=== PATIENT | female | born 1940 | race Caucasian/White ===

== ENCOUNTER 2016-09-27 17:50 | Inpatient (IN) | payer MEDICARE, OTHER ==
[~2016-09-27] VITALS: Ht 157.5 cm; Wt 60.9 kg
--- NOTE | ~2016-09-27 | CN ---
PATIENT NAME:JOVANY KEARNEY MEDICAL RECORD: [id number] : 36 LOCATION:D. D.2137 ADMIT DATE: 09/27/16 ACCOUNT: [id number] CONSULTING PHYSICIAN: CHRISTIANO HUNTER MD REFERRING PHYSICIAN: MITCHELL PALAFOX MD DATE OF CONSULTATION: 09/28/2016 CONSULT REQUESTING PHYSICIAN: Dr. Mitchell Palafox. REASON FOR CONSULTATION: Acute flare of bronchiectasis. HISTORY OF PRESENT ILLNESS: Ms. Kearney is a 76-year-old female. According to the patient she has bronchiectasis for the last 30 years. She had multiple bronchoscopies in [place]. She moved to [place] in 2014. She was hospitalized at [facility], over here as well as to [facility], she was hospitalized for a long time. Then, she was also hospitalized in [facility] in [place] and she has seen a food safety field specialist over there times 2. The last time she was admitted, she has hemoptysis that was related to Xarelto and the patient got better. Now for the last few days, the patient is coughing white yellow color sputum production. The patient has shortness of breath with mild exertion. Her SpO2 is dropping in mid 50s with mild exertion. She also hears herself wheezing. PAST MEDICAL HISTORY: 1. Bronchiectasis for the last 30 years. 2. History of histoplasmosis. 3. Chronic hypoxic respiratory failure. 4. COPD. 5. Iron deficiency anemia. 6. Hyperlipidemia. 7. Paroxysmal atrial fibrillation. 8. Pulmonary fibrosis. 9. Sputum culture positive for Achromobacter xylosoxidans that was sensitive to meropenem. PAST SURGICAL HISTORY: 1. Blepharoplasty. 2. Cataract surgery. 3. Laparoscopic cholecystectomy. ALLERGIES: SHE IS ALLERGIC TO SULFA. PRESENT MEDICATIONS: She is on Tikosyn. She is on Xarelto. Her all other medication list was reviewed. PERSONAL AND SOCIAL HISTORY: The patient is . She lives with her . She never smoked. She is a nondrinker. FAMILY HISTORY: Noncontributory. PHYSICAL EXAMINATION: GENERAL: Now, the patient is lying comfortably. She is not in acute distress. VITAL SIGNS: The blood pressure is 129/65, pulse is 71, respiration is 17, temperature 97.5, SPO2 is 96% on a 3 liter nasal cannula. HEENT: Conjunctivae pink, sclerae nonicteric. CONSULT REPORT [id number] JOVANY KEARNEY NECK: Supple. No JVD. CHEST: There is prolonged expiration with wheezing. There is also bibasilar crackles. HEART: Rhythm irregular. Normal sound. No murmur. ABDOMEN: Soft. Bowel sounds present. No hepatosplenomegaly. RECTAL: Deferred. EXTREMITIES: No cyanosis, no clubbing, no pedal edema. SKIN: Warm, normal turgor. CENTRAL NERVOUS SYSTEM: The patient is awake and alert. There are no obvious cranial nerve abnormality. The gait was not tested. IMAGING: Chest radiograph, there is hyperinflation. There is fibrotic changes. There is infiltrate in the right lower lobe. There are also right-sided pleural effusion. OTHER LABORATORY DATA: CBC: WBC 13.1, hemoglobin 13.5, hematocrit 44.5, the platelet count is 312. Chemistry: Sodium 141, potassium 3.9, BUN is 14, creatinine 0.9, glucose 107. ABG: The pH is 7.32, pCO2 is 65.3, pO2 of 75. IMPRESSION: 1. Acute exacerbation of bronchiectasis. 2. Acute exacerbation of chronic obstructive pulmonary disease. 3. Gsmcd-ee-esuznxp hypercapnic respiratory failure. 4. Pneumonia, most likely hospital-acquired pneumonia with recent hospitalization. 5. Right pleural effusion, possible parapneumonic. 6. Pulmonary fibrosis. 7. History of histoplasmosis. 8. History of pulmonary nodule in left upper lobe that was diagnosed in [place]. 9. Paroxysmal atrial fibrillation. RECOMMENDATION: 1. Continue the meropenem. 2. Brovana, budesonide nebulizer. 3. Albuterol/ipratropium nebulizer. 4. Methylprednisolone IV. 5. Check IgG, IgE, IgA, IgM. Check the alpha-1 antitrypsin level. 6. Check CT scan with high resolution cuts. 7. Check serum serology for the fungal infection. 8. Follow up labs in the morning. 9. We will get the medical records from [facility]. Dr. Palafox, once again thank you for involving in the care of Ms. Kearney. TRANSINT:[id number] Voice Confirmation ID: [id number] DOCUMENT ID: [id number] CONSULT REPORT [id number] JOVANY KEARNEY MUSHTAQ MD CC: MITCHELL PALAFOX MD [id number] DICTATION DATE: 09/28/16 1540 [employer]ICAN FO[employer] COOK: 09/29/16 0011 ADM IN [place] [id number] [place] [id number]
[2016-09-27 19:30] LABS: BASOPHILS 0.2 % (0-2); EOSINOPHILS 1.1 % (0-7); HEMATOCRIT 44.5 % (36.0-48.0); HEMOGLOBIN 13.5 g/dL (12-16); IMMATURE GRANULOCYTES 0.4 % (0-5); MCHC 30.3 g/dL (31.0-37.0); MCV 92.1 fL (80.0-100.0); MEAN PLATELET VOLUME 10.3 fL (7.4-10.4); MONOCYTES 10.8 % (2-11); NEUTROPHILS 62.5 % (40-80); PLATELET COUNT 312 10x3/uL (130-400); RBC 4.83 10x6/uL (4.00-5.40); RDW 13.8 % (11.5-14.5); WBC 13.1 10x3/uL (4.8-10.8)
[2016-09-27 19:46] LABS: ALBUMIN 3.5 g/dL (3.4-5.0); BILIRUBIN - TOTAL 0.33 mg/dL (0.2-1.3); CALCIUM 9.5 mg/dL (8.5-10.1); CARBON DIOXIDE 34.9 mmol/L (21.0-32.0); CREATININE - SERUM 0.9 mg/dL (0.6-1.3); POTASSIUM - SERUM 3.9 mmol/L (3.5-5.1); PROTEIN - SERUM 7.9 g/dL (6.4-8.2)
[2016-09-27] MEDS ORDERED: XARELTO10 MG PO (23:55)
[2016-09-27] MEDS ORDERED: PRAVASTATIN SOD10 MG PO (23:55)
[2016-09-27] MEDS ORDERED: CARTIA XT120 MG PO (23:55)
[2016-09-27] MEDS ORDERED: ANORO ELLIPTA1 EACH INH (23:56)
[2016-09-27] MEDS ORDERED: POTASSIUM40 MEQ/15 PO (23:56)
[2016-09-27] MEDS ORDERED: TORSEMIDE20 MG PO (23:59)
[2016-09-28 00:17] VITALS: BP 154/73; BMI 22.0
[2016-09-28] MEDS ORDERED: TIKOSYN250 MCG PO (01:06)
[2016-09-28] MEDS ORDERED: ALBUTEROL2.5 MG/3 M INH (01:07)
[2016-09-28] MEDS ORDERED: PROBIOTIC1 EAC1 PO (01:08)
[2016-09-28] MEDS ORDERED: VITAMIN D2000 UNIT PO (01:09)
[2016-09-28] MEDS ORDERED: MUCINEX600 MG PO (01:10)
[2016-09-28] MEDS ORDERED: FERROUS SULFAT325 MG PO (01:11)
[2016-09-28] MEDS ORDERED: VITAMIN B-121000 MCG PO (01:12)
[2016-09-28 03:39] VITALS: BP 105/59
--- NOTE | 2016-09-28 07:25 | NUR ---
RECEIVED REPORT. ASSUMED CARE OF PATIENT. CALL LIGHT WIHTIN REACH. PATIENT ALERT/ORIENTED. SITTING UP IN BED HAVING COFFEE WITH SPOUSE. DENIES NEEDS. NO DISTRESS.
[2016-09-28 07:58] VITALS: BP 129/65
--- NOTE | 2016-09-28 09:45 | NUR ---
SPOKE WITH AND RECEIVED ORDERS FOR POTASSIUM SUPPLEMENT TO BE ADMINISTERED WITH DEMADEX. PATIENT WAS REFUSING DEMADEX UNTIL POTASSIUM SUPPLEMENT WAS ORDERED.
[2016-09-28 13:28] VITALS: Ht 157.5 cm; Wt 60.9 kg
[2016-09-28 15:58] VITALS: BP 139/66
--- NOTE | 2016-09-28 17:36 | NUR ---
, RADIOLOGIST CALLED TO REPORT FINDINGS OF CT OF CHEST. MD REPORTS THAT PATIENT HAS SMALL TO MODERATER PNEUMOTHORAX ON THE RIGHT SIDE. CALLED AND REPORTED THE FINDINGS AND HE STATED TO CALL SURGEON CORPORATE SAFETY DIRECTOR AND SEE IF THEY WILL NEED TO PLACE A CHEST TUBE OR AT LEAST TO NOTIFY THEM IN CASE PATIENT GOES INTO RESPIRATORY DISTRESS. PAGED AND RETURNED CALL. NOTIFIED THAT THIS CLINICAL INFORMATICS SPECIALIST RECEIVED ORDERS FROM FOR POSSIBLE NEED FOR CHEST TUBE OR AT LEAST MAKE HIM AWARE OF WHAT THE CT OF THE CHEST SHOWED JUST IN CASE THE PATIENT HAS RESP DISTRESS LATER DURING HER STAY. ADMITTING DIAGNOSIS AND ADMIT DATE GIVEN TO AND THIS CLINICAL INFORMATICS SPECIALIST EXPLAINED THAT PATIENT ONLY EXPERIENCES MILD DYSPNEA WHEN AMBULATING TO AND FROM BATHROOM TO SINK, IF PATIENT IS SITTING IN BED SHE IS IN NO DISTRESS. DR. FONSECA STATED HE WOULD SEE PATIENT IN THE MORNING. THANKED HIM FOR RETURNING CALL.
--- NOTE | 2016-09-28 19:50 | NUR ---
PT SITTING UP IN BED READING. A/O. RESP EVEN AND SLIGHTLY LABORED. PT STATES THE "PRESSURE AND TIGHTNESS" IN HER CHEST HAS GONE AWAY. NO DISTRESS NOTED. REQUEST A CUP OF COFFEE. CALL LIGHT WITH IN REACH. WILL CONT. TO MONITOR.
[2016-09-28 20:44] VITALS: BP 124/61
[2016-09-28 23:58] VITALS: BP 105/55
--- NOTE | 2016-09-29 00:04 | NUR ---
PT STANDING AT SINK BRUSHING TEETH. SOB NOTED. PT STATES SOB IS STABLE. DENIES NEEDS AT THIS TIME. REFUSES NURSE ASSISTANCE WITH ADL'S.
--- NOTE | 2016-09-29 02:26 | NUR ---
PT SLEEPING. HOB ELEVATED. RESP EVEN AND UNLABORED. APPEARS COMFORTABLE. CALL LIGHT WITH IN REACH. WILL CONT. TO MONITOR.
[2016-09-29 03:55] VITALS: BP 100/48
--- NOTE | 2016-09-29 05:35 | NUR ---
PT SLEEPING, EASILY AWAKEN. DENIES NEEDS AT THIS TIME. NO DISTRESS NOTED. CALL LIGHT WITH IN REACH.
[2016-09-29 06:09] LABS: BASOPHILS 0 % (0-2); EOSINOPHILS 0 % (0-7); HEMATOCRIT 39.6 % (36.0-48.0); HEMOGLOBIN 12.2 g/dL (12-16); IMMATURE GRANULOCYTES 0.2 % (0-5); MCH 27.9 pg (26.0-34.0); MCHC 30.8 g/dL (31.0-37.0); MCV 90.4 fL (80.0-100.0); MEAN PLATELET VOLUME 10.1 fL (7.4-10.4); MONOCYTES 2.1 % (2-11); NEUTROPHILS 90.7 % (40-80); PLATELET COUNT 329 10x3/uL (130-400); RBC 4.38 10x6/uL (4.00-5.40); RDW 13.8 % (11.5-14.5)
[2016-09-29 06:25] LABS: ANION GAP 10.1 mmol/L (8-16); CARBON DIOXIDE 34.3 mmol/L (21.0-32.0); CREATININE - SERUM 0.9 mg/dL (0.6-1.3); MAGNESIUM - SERUM 2.2 mg/dL (1.8-2.4); POTASSIUM - SERUM 4.4 mmol/L (3.5-5.1)
--- NOTE | 2016-09-29 07:06 | HP ---
PATIENT: JOVANY KEARNEY MEDICAL RECORD: [id number] ACCOUNT: [id number] LOCATION:[address] : 38 ADMISSION DATE: 09/27/16 HISTORY AND PHYSICAL EXAMINATION REASON FOR ADMISSION: Increasing dyspnea and cough. HISTORY OF PRESENT ILLNESS: The patient is a 76-year-old female with longstanding history of bronchiectasis and paroxysmal atrial fibrillation. She moved to [place] in 2014 from [place]. She says last year she spent 65 days in the hospital, both the [facility] and [facility]. She had sputum culture last year showing achromobacter xylosoxidans that was fairly resistant antibiotics except for imipenem and meropenem. She was in [facility] ____ long course of IV antibiotics. She also went to [facility] because of recurrent atrial fibrillation. She had cardioversion there and was placed on Tikosyn. She states for the last 8 months, she has been in sinus rhythm. She sees Dr. Dejuan Brown and Dr. Nuno ____. She states for the last several weeks she has had increasing cough, congestion and exertional dyspnea. If she walks across the [place], her O2 sat drops in the 50s. She has not had fever. Some pressure in her chest. She states she had a negative heart catheterization at [facility] as well as a normal echocardiogram [facility] last year showing an EF of over 55%. She states she had a bleeding episode i.e. gross hemoptysis on Xarelto last year, was in the ICU at [facility]. Pulmonary wanted her to stop her Xarelto, cardiology did not. Ultimately, ____ from pulmonary, she states dismissed her because of her concern about not taking anticoagulant for AFib, stroke prevention. PAST MEDICAL HISTORY: Bronchiectasis, chronic obstructive pulmonary disease, O2 dependent, history of histoplasmosis, history of sporotrichosis, iron deficiency anemia due to chronic blood loss, hyperlipidemia, paroxysmal atrial fibrillation, pulmonary fibrosis. PAST SURGICAL HISTORY: She has had blepharoplasty, cataract surgery and laparoscopic cholecystectomy. FAMILY HISTORY: Father with cancer as did her mother. Mother also had history of CAD and hypertension, one sister with Alzheimer's dementia, diabetes and cerebral vascular disease. SOCIAL HISTORY: Lifelong nonsmoker. She is , has children living in the area. HOME MEDICATIONS: Tikosyn 250 mcg capsule 1 by mouth q.12 hours, Lactinex 1 packet by mouth t.i.d., probiotic 250 mg capsule daily, pravastatin 20 mg with evening meal, albuterol HFA inhaler 2 puffs every 6 hours p.r.n., diltiazem CD 120 mg p.o. daily, Mucinex 600 mg p.o. b.i.d., ferrous sulfate 325 mg p.o. daily, Demadex ____ mg p.o. q.a.m., multivitamin 1 daily, biotin 2500 mcg tablet b.i.d., vitamin B12 1000 mcg tablet sublingual daily, vitamin D3 2000 units p.o. daily, Xarelto 10 mg p.o. daily. ALLERGIES: TO SULFA, AND SHE HAS BEEN CAUTIONED NOT TO USE LEVAQUIN DUE TO TIKOSYN THERAPY. REVIEW OF SYSTEMS: GENERAL: She has been chronically fatigued without weight loss. No recent HISTORY AND PHYSICAL [id number] GREENJOVANY ANTONIA fever. HEENT: No recent visual change, sinus congestion or sore throat. RESPIRATORY: Marked exertional dyspnea with chronic cough or sputum production throughout the day. She has chest pressure when she walks. Denies recent hemoptysis. GASTROINTESTINAL: No nausea, vomiting, change in stools or blood per rectum. GENITOURINARY: No incontinence. GYNECOLOGIC: No vaginal bleeding. ENDOCRINE: Denies polyuria, polydipsia, heat or cold intolerance. NEUROLOGIC: No history of stroke, TIA, vascular headaches or seizures. INTEGUMENT: No rash or itching. PSYCHIATRIC: Denies depressed mood. PHYSICAL EXAMINATION: VITAL SIGNS: Temperature 99.6 Fahrenheit orally, pulse 80 and regular, respirations are 16, blood pressure 120/64 with a sat of 81% on 2 liters. HEENT: Normocephalic. Eyes are clear with lens implants noted. Oropharynx unremarkable. NECK: No bruits, masses or JVD. CHEST: ____ crackles and wheezes in the bases bilaterally. No E to A change. No retractions. HEART: Regular rate without MGR. PMI is appropriate. ABDOMEN: Soft, nontender. EXTREMITIES: No CC&E. NEUROLOGICAL: Grossly intact. Gait is normal. Memory is intact. LABORATORY DATA: Shows white count of 13.1 thousand with 63% neutrophils, 25% lymphocytes, H&H is 13.5 and 44.5 respectively. Sodium 141, potassium 3.9, serum CO2 is 39.5. Anion gap is 10, BUN is 14, creatinine is 0.9. Liver functions are normal. ABG: pH 7.325, pCO2 of 65, pCO2 of 75 on 3 liters. Chest x-ray shows bilateral interstitial alveolar infiltrate and small right pleural effusion. No old chest x-rays to compare. Urinalysis is pending. ASSESSMENT: 1. Chronic obstructive pulmonary disease with exacerbation. 2. Chronic bronchiectasis. 3. History of paroxysmal atrial fibrillation. 4. History of histoplasmosis and sporotrichosis. 5. Hyperlipidemia. 6. Pulmonary fibrosis. 7. History of hemoptysis. 8. History of abnormal CT chest with spiculated nodules in left upper lobe. PLAN: The patient is admitted for IV antibiotics. We will avoid quinolones due to drug interaction with Tikosyn. Dr. Hines has been consulted. I also reviewed her previous CT scan at [facility], consider repeating that. Sputum cultures will be obtained. TRANSINT:[id number] Voice Confirmation ID: [id number] DOCUMENT ID: [id number] HISTORY AND PHYSICAL [id number] JOVANY KEARNEY TIMOTHY MD at 0706 CC: [id number] DICTATION DATE: 09/28/16 0754 COMPOSITION ROLL MAKER AND CUTTER: 09/28/16 0929 ADM IN [facility] [address] [place] [address]
--- NOTE | 2016-09-29 07:08 | NUR ---
PT SITTING UP IN BED WITH AT BEDSIDE DENIES NEEDS WILL CONT TO MONITOR
[2016-09-29 07:38] VITALS: BP 98/50
[2016-09-29 12:16] VITALS: BP 97/48
[2016-09-29 16:24] VITALS: BP 119/53
[2016-09-29 19:00] VITALS: BP 117/57
--- NOTE | 2016-09-29 19:31 | NUR ---
PT AWAKE, ALERT, ORIENTED, DENIES ANY ACUTE NEEDS AT THIS TIME. CONTINUE TO MONITOR CLOSELY. BED LOW, CALL LIGHT IN REACH, SIDE RAILS X 2, HOB 30 DEGREES.
[2016-09-30] VITALS: BP 128/64
--- NOTE | 2016-09-30 04:15 | NUR ---
PT LYING IN BED ON LEFT SIDE, EYES CLOSED, RESPIRATIONS EVEN AND UNLABORED. PT IS EASILY ROUSABLE TO VERBAL STIMULI. CONTINUE TO MONITOR CLOSELY. BED LOW, CALL LIGHT IN REACH, SIDE RAILS X 2, HOB 30 DEGREES.
[2016-09-30 06:48] LABS: BASOPHILS 0.1 % (0-2); EOSINOPHILS 0 % (0-7); HEMATOCRIT 40.7 % (36.0-48.0); HEMOGLOBIN 12.2 g/dL (12-16); IMMATURE GRANULOCYTES 0.4 % (0-5); LYMPHOCYTES 5.2 % (15-50); MCH 27.6 pg (26.0-34.0); MCV 92.1 fL (80.0-100.0); MEAN PLATELET VOLUME 10.1 fL (7.4-10.4); MONOCYTES 1.8 % (2-11); NEUTROPHILS 92.5 % (40-80); PLATELET COUNT 351 10x3/uL (130-400); RBC 4.42 10x6/uL (4.00-5.40); RDW 14.1 % (11.5-14.5); WBC 16.7 10x3/uL (4.8-10.8)
[2016-09-30 07:02] LABS: ANION GAP 9.6 mmol/L (8-16); CALCIUM 8.6 mg/dL (8.5-10.1); CARBON DIOXIDE 35.6 mmol/L (21.0-32.0); CREATININE - SERUM 0.8 mg/dL (0.6-1.3); MAGNESIUM - SERUM 2.4 mg/dL (1.8-2.4); POTASSIUM - SERUM 4.2 mmol/L (3.5-5.1)
[2016-09-30 07:35] VITALS: BP 124/63
--- NOTE | 2016-09-30 08:00 | NUR ---
0720-AM ROUNDING DONE WITH PATIENT SITTING UP IN BED. ON 2L PER NC. NO IV ACCESS AT PRESENT TIME. MALE MEMBER AT BEDSIDE. DENIES NEEDS AT PRESENT TIME.
--- NOTE | 2016-09-30 08:29 | NUR ---
X2 ATTMEPTS TO RESTART IV BY SHAYNE LAY. PRESSURE AND DRESSING APPLIED. X1 ATTEMPT BY ME TO RESTART IV. PRESSURE AND DRESSING APPLIED. ALERTED VICTOR M RUST. VICTOR M ARSHAD IV ACCESS NURSE, NOTIFIED. BED LOW, CALL LIGHT IN REACH, DENIES NEEDS, AT BEDSIDE, BREAKFAST TRAY IN ROOM. CPOC.
--- NOTE | 2016-09-30 08:43 | NUR ---
CALLED PAVITHRA FLORIAN, VASCULAR ACCESS NURSE TO COME START IV SHE HAS BEEN STUCK 3 TIMES ALREADY.
--- NOTE | 2016-09-30 09:00 | NUR ---
22G IV PLACED IN RIGHT FA AND SALINE LOCKED. PT TOLERATED WELL AND DENIES FURTHER NEEDS AT THIS TIME.
--- NOTE | 2016-09-30 09:10 | NUR ---
22 G TO RIGHT FA.
--- NOTE | 2016-09-30 10:58 | NUR ---
RETURNS FROM WALK TEST WITH RMaame
[2016-09-30 11:52] VITALS: BP 117/46
[2016-09-30 13:16] LABS: IMMUNOGLOBULIN A 127 mg/dL (64-422); IMMUNOGLOBULIN G 615 mg/dL (700-1600)
[2016-09-30 16:42] VITALS: BP 139/91
--- NOTE | 2016-09-30 17:23 | NUR ---
DENIES NEEDS AT PRESENT TIME, WILL CONTINUE TO MONITOR. AT BEDSIDE.
--- NOTE | 2016-09-30 22:07 | NUR ---
Recieved patient in her room, alert and oriented x 4, bed in low and locked position, call light and bedside table in reach, patient denies needs at this time.
[2016-09-30 22:09] VITALS: BP 115/50
[2016-10-01] VITALS (7 sets, daily range): BP systolic 108–157; BP diastolic 52–86
--- NOTE | 2016-10-01 01:34 | NUR ---
Patient resting in bed , denies needs at this time.
[2016-10-01 06:25] LABS: BASOPHILS 0 % (0-2); EOSINOPHILS 0 % (0-7); HEMOGLOBIN 12.3 g/dL (12-16); IMMATURE GRANULOCYTES 0.6 % (0-5); LYMPHOCYTES 6.2 % (15-50); MCH 27.5 pg (26.0-34.0); MCV 91.5 fL (80.0-100.0); MEAN PLATELET VOLUME 10.2 fL (7.4-10.4); MONOCYTES 1.7 % (2-11); NEUTROPHILS 91.5 % (40-80); PLATELET COUNT 333 10x3/uL (130-400); RBC 4.48 10x6/uL (4.00-5.40); RDW 14.2 % (11.5-14.5)
[2016-10-01 06:36] LABS: WBC 10.7 10x3/uL (4.8-10.8)
[2016-10-01 06:47] LABS: ANION GAP 6.9 mmol/L (8-16); CALCIUM 8.1 mg/dL (8.5-10.1); CARBON DIOXIDE 37.8 mmol/L (21.0-32.0); CREATININE - SERUM 0.8 mg/dL (0.6-1.3); MAGNESIUM - SERUM 2.2 mg/dL (1.8-2.4); POTASSIUM - SERUM 3.7 mmol/L (3.5-5.1)
--- NOTE | 2016-10-01 07:44 | NUR ---
AM ROUNDING- RECEIVED REPORT FROM MANAGER PACKAGE NURSE NICK. PT IS CURRENTLY SITTING UP IN BED WITH EYES OPEN RESTING. AND GRANDAUGHTER ARE AT BEDSIDE. ON EP, WILL CHECK AM LABS AND TX PER PROTOCOL. 0N 02 AT 2L VIA NC. IV SEEN TO RIGHT FOREARM WITH NS RUNNING AT 30CC. NO NEED AT CURRENT TIME. WILL CONTINUE TO MONITOR AND CONTINUE WITH PLAN OF CARE.
[2016-10-01 14:22] LABS: ANTI-MYELIN ASSOC. GLY. IGM <1:10 Titer (())
--- NOTE | 2016-10-01 17:46 | NUR ---
PT IS CURRENTLY SITTING UP IN BED WITH EYES OPEN RESTING. IS AT BEDSIDE. PT IS AWAITING DIETRY TO BRING MORE SOUP. NO OTHER NEED AT CURRENT TIME. WILL CONTINUE TO MONITOR.
--- NOTE | 2016-10-01 20:07 | NUR ---
ASSESSMENT DONE. PT SITTING UP IN BED. A/O. NO DISTRESS NOTED. PT REQUESTS A CUP OF COFFEE AND A SNACK. CALL LIGHT WITH IN REACH. WILL CONT. TO MONITOR.
--- NOTE | 2016-10-01 23:37 | NUR ---
PT SLEEPING. LAYING ON LEFT SIDE. RESP EVEN AND UNLABORED. APPEARS COMFORTABLE. CALL LIGHT WITH IN REACH. WILL CONT. TO MONITOR.
--- NOTE | 2016-10-02 02:33 | NUR ---
PT SLEEPING. EYES CLOSED, RESP EVEN AND UNLABORED. APPEARS COMFORTABLE. NO DISTRESS NOTED. CALL LIGHT WITH IN REACH. WILL CONT. TO MONITOR.
--- NOTE | 2016-10-02 04:40 | NUR ---
PT UP AND STANDING AT SINK BRUSHING TEETH. NO DISTRESS NOTED. DENIES NEEDS. WILL CONT. TO MONITOR.
[2016-10-02 05:11] VITALS: BP 147/70
[2016-10-02 06:32] LABS: BASOPHILS 0 % (0-2); EOSINOPHILS 0 % (0-7); HEMATOCRIT 40.9 % (36.0-48.0); HEMOGLOBIN 12.6 g/dL (12-16); IMMATURE GRANULOCYTES 0.8 % (0-5); MCH 27.7 pg (26.0-34.0); MCHC 30.8 g/dL (31.0-37.0); MCV 89.9 fL (80.0-100.0); MEAN PLATELET VOLUME 10.2 fL (7.4-10.4); MONOCYTES 3.5 % (2-11); NEUTROPHILS 86.7 % (40-80); PLATELET COUNT 329 10x3/uL (130-400); RBC 4.55 10x6/uL (4.00-5.40); RDW 14.1 % (11.5-14.5); WBC 9.6 10x3/uL (4.8-10.8)
[2016-10-02 06:47] LABS: CALC OSMOLALITY 292 mosm/kg (275-300); CALCIUM 8.6 mg/dL (8.5-10.1); CARBON DIOXIDE 39.9 mmol/L (21.0-32.0); CHLORIDE - SERUM 100 mmol/L (98-107); CREATININE - SERUM 0.7 mg/dL (0.6-1.3); GLUCOSE 156 mg/dL (74-106); MAGNESIUM - SERUM 2.5 mg/dL (1.8-2.4); POTASSIUM - SERUM 3.7 mmol/L (3.5-5.1); SODIUM 143 mmol/L (136-145); UREA NITROGEN 26 mg/dL (7-18); eGFR NON AFRICAN AMERICAN 86 mL/min (90-120)
--- NOTE | 2016-10-02 10:10 | NUR ---
0700- AM ROUNDING, RECEIVED REPORT FROM ROD MILL TENDER NURSE ABBI. PT IS CURRENTLY SITTING UP IN BED WITH EYES OPEN RESTING. IS AT BEDSIDE. PT IS ALERT AND ORIENTED. UP AD FIDEL. ON EP, WILL CHECK AM LABS AND TX PER PROTOCOL. 0N 02 AT 3L VIA NC. NO MONITOR. IV SEEN TO RIGHT FOREARM THAT IS CURRENTLY SALINE LOCKED. NO NEED AT CURRENT TIME. WILL CONTINUE TO MONITOR AND CONTINUE WITH PLAN OF CARE.
[2016-10-02 10:48] VITALS: BP 128/77
[2016-10-02 12:03] VITALS: BP 133/60
[2016-10-02 16:51] VITALS: BP 118/52
[2016-10-02 20:00] VITALS: BP 128/49
--- NOTE | 2016-10-02 21:11 | NUR ---
HS MEDS GIVEN WITH FRESH ICE WATER, PT DENIES PAIN OR NEEDS, BED LOW, CL IN REACH.
[2016-10-03] VITALS (7 sets, daily range): BP systolic 121–158; BP diastolic 60–77
--- NOTE | 2016-10-03 02:38 | NUR ---
RESTING WITH EYES CLOSED, RESPERATIONS EVEN, NO S/S DISTRESS NOTED.
[2016-10-03 06:04] LABS: BASOPHILS 0.1 % (0-2); EOSINOPHILS 0 % (0-7); HEMATOCRIT 43.5 % (36.0-48.0); HEMOGLOBIN 13.4 g/dL (12-16); MCH 27.7 pg (26.0-34.0); MCHC 30.8 g/dL (31.0-37.0); MCV 90.1 fL (80.0-100.0); MEAN PLATELET VOLUME 10.3 fL (7.4-10.4); NEUTROPHILS 88.9 % (40-80); PLATELET COUNT 348 10x3/uL (130-400); RBC 4.83 10x6/uL (4.00-5.40); WBC 11.5 10x3/uL (4.8-10.8)
[2016-10-03 06:22] LABS: CALCIUM 8.5 mg/dL (8.5-10.1); CREATININE - SERUM 0.8 mg/dL (0.6-1.3); MAGNESIUM - SERUM 2.6 mg/dL (1.8-2.4)
--- NOTE | 2016-10-03 06:54 | NUR ---
RECIEVED REPORT FROM MERCHANDISE EXAMINER NURSE, AIME KAYE. PT IN BED SLEEPING AT THIS TIME. CALL LIGHT IN REACH, AT BEDSIDE, NAD NOTED, WILL CONTINUE TO MONITOR.
--- NOTE | 2016-10-03 08:52 | NUR ---
ADMINISTERED MORNING MEDICATIONS, PT IN BED, IV LEAKING WILL D/C IV AND START NEW ONE. PT DENIES ANY NEEDS AT THIS TIME, AT BEDSIDE. NAD NOTED, WILL CONTINUE TO MONITOR. WHEN I WENT TO SUBMIT MEDS GIVEN. COMPUTER WOULD NOT LET ME SUBMIT THEM SO I HAD TO SHUT COMPUTER DOWN AND CLICK ON EACH MEDS AND SAY IT WAS GIVEN THIS AM. RAQUEL BURGERINSURANCE ACCOUNT MANAGER NOTIFIED.
[2016-10-03 14:09] LABS: FUNGAL - ASP FLAVUS Negative (Neg:<1:1); FUNGAL - ASP NIGER Negative (Neg:<1:1); FUNGAL - ASPER FUMIGATUS Negative (Neg:<1:1)
--- NOTE | 2016-10-03 17:44 | NUR ---
PT'S IV INFILTRATED. IV D/C TIP INTACT. WILL RESTART NEW IV SOON.
--- NOTE | 2016-10-03 19:19 | NUR ---
RESUMED CARE OF PT, SITTING ON SIDE OF BED RESPIRATIONS EVEN AND UNLABORED ON 2LPM VIA NC. NO IV AT THIS TIME. NO NEEDS VOICED AT THE MOMENT. WILL CONTINUE TO MONITOR. SEE NURSE ASSESSMENT. CALL LIGHT IN REACH.
--- NOTE | 2016-10-03 20:32 | NUR ---
22 GAUGE X 1 STICK.
--- NOTE | 2016-10-04 00:54 | NUR ---
LYING IN BED WITH EYES CLOSED, CALL LIGHT IN REACH. WILL CONTINUE WITH PLAN OF CARE.
[2016-10-04 03:23] VITALS: BP 149/76
[2016-10-04 06:20] LABS: BASOPHILS 0.1 % (0-2); EOSINOPHILS 0 % (0-7); HEMATOCRIT 46.9 % (36.0-48.0); HEMOGLOBIN 14.4 g/dL (12-16); IMMATURE GRANULOCYTES 0.9 % (0-5); LYMPHOCYTES 5.9 % (15-50); MCH 27.8 pg (26.0-34.0); MCHC 30.7 g/dL (31.0-37.0); MCV 90.5 fL (80.0-100.0); MEAN PLATELET VOLUME 10.4 fL (7.4-10.4); MONOCYTES 2.6 % (2-11); NEUTROPHILS 90.5 % (40-80); PLATELET COUNT 386 10x3/uL (130-400); RBC 5.18 10x6/uL (4.00-5.40); RDW 13.9 % (11.5-14.5)
[2016-10-04 06:27] LABS: WBC 15.2 10x3/uL (4.8-10.8)
[2016-10-04 06:53] LABS: ANION GAP 5.5 mmol/L (8-16); CALCIUM 8.4 mg/dL (8.5-10.1); CREATININE - SERUM 0.9 mg/dL (0.6-1.3); POTASSIUM - SERUM 3.6 mmol/L (3.5-5.1)
[2016-10-04 07:13] LABS: CARBON DIOXIDE 44.1 mmol/L (21.0-32.0)
--- NOTE | 2016-10-04 07:21 | NUR ---
PT SITTING UP IN BED WITH AT BEDSIDE DNEIES NEEDS WILL CONT TO MONITOR
[2016-10-04 07:49] LABS: MAGNESIUM - SERUM 2.5 mg/dL (1.8-2.4); PHOSPHOROUS 4.7 mg/dL (2.5-4.9)
[2016-10-04 08:33] VITALS: BP 139/66
--- NOTE | 2016-10-04 11:12 | NUR ---
PT PLACED IN ISOLATION FOR MRSA IN THE SPUTUM. EXPLAINED TO PT
[2016-10-04 13:01] VITALS: BP 131/67
[2016-10-04 16:23] VITALS: BP 141/56
--- NOTE | 2016-10-04 16:45 | NUR ---
CALLED PHARM FOR MAGIC MOUTHWASH FOR PT
--- NOTE | 2016-10-04 17:04 | NUR ---
EARLIER THIS AFTERNOON PT WAS CO SORE MOUTH. WHEN I LOOKED IN PT MOUTH I DID NOT SEE ANYTHING THAT LOOKED ABNORMAL IN ANY WAY. PT IS SAYING THERE ARE BUMPS IN HER MOUTH, I DID NOT PERSONALLY SEE ANYTHING. CALLED DR JARRELL'S OFFICE BECAUSE PT IS CONCERNED, HE WAS NOT IN OFFICE. DR BOLANOS TAKING CALL FOR HIM. SAID TO ORDER PT ONOCOLOGY MOUTHWASH, ORDERED. JUST NOW WENT TO ADMINISTER MOUTHWASH AND PT SAYS THAT HER MOUTH IS NOT SORE,SHE CAN JUST FEEL BUMPS. PT AGREED TO TAKE MOUTHWASH
--- NOTE | 2016-10-04 17:17 | NUR ---
PT IS IN ISOLATION AND DIETARY DOES NOT DELIVER HER FOOD TRAYS TO HER. I WENT TO GIVE PT HER DINNER TRAY, PT SAYS "WELL I DONT WANT IT IF IT HAS BEEN SITTING UP THERE AND IS COLD." I TOLD PT THAT IT SHOULDNT BE, THEY JUST DELIVERED TRAYS AND I BROUGHT IT TO HER ONCE I NOTICED IT, PT REPLIED WITH "YEAH RIGHT."
--- NOTE | 2016-10-04 18:24 | NUR ---
PT SITTING UP ON SIDE OF BED, AT BEDSIDE DENIES NEEDS
[2016-10-04 20:10] VITALS: BP 135/63
--- NOTE | 2016-10-04 22:21 | NUR ---
PT AWAKE, ALERT, ORIENTED, DENIES ANY NEEDS. PT STATES SHE DEVELOPED BUMPS ON THE INSIDE OF HER LIPS, VISIBLE UPON ASSESSMENT. PT STATES THEY DO NOT HURT, THEY DO NOT STING OR BURN, DENIES ANY SENSATION WITH THEM AT ALL. PT REFUSED THE MAGIC/ONCO WASH THIS EVENING, STATING THERE IS NO PAIN AND IT MAKES HER MOUTH NUMB. PT ALSO STATES SHE FEELS THEM DEEP IN THE BACK OF HER THROAT, TONGUE IS CLEAR AT THIS TIME. PT DENIES ANY OTHER NEEDS. CONTINUE TO MONITOR CLOSELY. BED LOW, CALL LIGHT IN REACH, SIDE RAILS X 2, HOB 30 DEGREES.
[2016-10-05 00:05] VITALS: BP 119/62
[2016-10-05 03:37] VITALS: BP 140/71
--- NOTE | 2016-10-05 04:31 | NUR ---
PT HAS BEEN RESTLESS THIS SHIFT, UP AND DOWN ALL NIGHT. PT DENIES ANY ACUTE NEEDS, WILL CALL IF NEEDING ANY ASSISTANCE. WILL CONTINUE TO MONITOR CLOSELY. BED LOW, CALL LIGHT IN REACH, SIDE RAILS X 2, HOB 30 DEGREES.
--- NOTE | 2016-10-05 07:20 | NUR ---
RECEIVED REPORT FROM MARIA ESTHER ROSALESR NURSE, DAY[place] DOW. PT IN BED, SLEEPING AT THIS TIME. CALL LIGHT IN REACH, NAD NOTED, WILL CONTINUE TO MONITOR.
[2016-10-05 08:08] VITALS: BP 127/57
[2016-10-05 08:25] LABS: BASOPHILS 0.1 % (0-2); EOSINOPHILS 0 % (0-7); HEMATOCRIT 45.3 % (36.0-48.0); IMMATURE GRANULOCYTES 1.3 % (0-5); LYMPHOCYTES 5.8 % (15-50); MCH 27.8 pg (26.0-34.0); MCHC 30.9 g/dL (31.0-37.0); MCV 89.9 fL (80.0-100.0); MEAN PLATELET VOLUME 10.2 fL (7.4-10.4); NEUTROPHILS 88.8 % (40-80); PLATELET COUNT 324 10x3/uL (130-400); RBC 5.04 10x6/uL (4.00-5.40); RDW 14.1 % (11.5-14.5)
[2016-10-05 08:44] LABS: ANION GAP 4.6 mmol/L (8-16); CREATININE - SERUM 0.9 mg/dL (0.6-1.3); MAGNESIUM - SERUM 2.3 mg/dL (1.8-2.4); PHOSPHOROUS 4.3 mg/dL (2.5-4.9); POTASSIUM - SERUM 3.4 mmol/L (3.5-5.1)
[2016-10-05 08:50] LABS: CARBON DIOXIDE 42.8 mmol/L (21.0-32.0)
--- NOTE | 2016-10-05 09:19 | NUR ---
ADMINISTERED MORNING MEDICATIONS. D/C RT FOREARM IV, TIP INTACT. PT DENIES ANY OTHER NEEDS AT THIS TIME. WAITING ON D/C PAPERS. CALL LIGHT IN REACH, NAD NOTED, WILL CONTINUE TO MONITOR.
--- NOTE | 2016-10-05 10:11 | NUR ---
PROVIDED VERBAL AND WRITTEN DISCHARGE TEACHING TO PT AND . BOTH VERBALIZED UNDERSTANDING REGARDING DISCHARGE TEACHING. WILL CALL PHARMACY AND HAVE THEM BRING PT MEDS THAT WERE LOCKED IN THE PHARMACY. PT DENIES ANY NEEDS AT THIS TIME. CALL LIGHT IN REACH, NAD NOTED, WILL CONTINUE TO MONITOR.
--- NOTE | 2016-10-05 10:44 | NUR ---
CALLED PHARMACY AND SPOKE WITH NAZANIN. INFORMED HER THAT PT IS WAITING FOR HER ANORO ELLIPTA THAT WOULD SENT TO THE PHARMACY TO BE LOCKED UP. NAZANIN STATED THAT SHE DID NOT FIND NOTHING LOCKED UP WITH THE PT'S NAME. SHE WILL CALL [facility] AND CHECK TO SEE IF THEY HAVE IT LOCKED UP.
--- NOTE | 2016-10-05 10:51 | NUR ---
Patient Name: JOVANY KEARNEY Admission Status: ER Accout number: [id number] Admission Date: 09-27-2016 : 1938 Admission Diagnosis:BRONCHIECTASIS, UNCOMPLICATED Attending: ODETTE Current LOS: 8 Anticipated DC Date: 10-05-2016 Planned Disposition: Home Primary Insurance: MEDICARE A & B Discharge Planning Comments: * Is the patient Alert and Oriented? Yes 0 * How many steps to enter\exit or inside your home? 2 0 * PCP DR. ZAKIA LARA 0 * Pharmacy [facility] 0 * Preadmission Environment Home with Family 0 * ADLs Independent 0 * Equipment Nebulizer Oxygen 0 * Other Equipment HOME AND PORTABLE OXYGEN [facility] - MEDICAL EQUIPMENT PROVIDER 0 * List name and contact numbers for known caregivers / representatives who currently or will assist patient after discharge: PACHECO LEMUS, DTR, 0 * Community resources currently utilized None 0 * Please name any agencies selected above. NONE 0 * Additional services required to return to the preadmission environment? No 0 * Can the patient safely return to the preadmission environment? Yes 0 * Has this patient been hospitalized within the prior 30 days at any hospital? No 0 CM MET WITH PT IN ROOM TO DISCUSS DISCHARGE PLANNING AND NEEDS. PT REPORTS LIVING AT HOME INDEPENDENTLY WITH HER SPOUSE. PT HAS HOME / PORTABLE OXYGEN AND NEBLUZER, SUPPLIED BY [employer]. PT HAS NO OUTSIDE SERVICES ASSISTING IN THE HOME. CM DISCUSSED AVAILABILITY OF HOME HEALTH, REHAB SERVICES AND MEDICAL EQUIPMENT. PT DENIES DISCHARGE NEEDS, REPORTS HER SPOUSE WILL PICK HER UP FOR DISCHARGE HOME. IMPORTANT MESSAGE FROM MEDICARE PROVIDED AND EXPLAINED. Green Building Materials Designer: Lennox Ba
--- NOTE | 2016-10-05 10:59 | NUR ---
PROVIDED PT WITH ANORO ELLIPTA INHALER. PT READY FOR WHEELCHAIR.
--- NOTE | 2016-10-05 11:09 | NUR ---
PT LEFT UNIT VIA WHEELCHAIR, ACCOMPANIED BY , NAD NOTED.
[2016-10-07 09:18] LABS: IMMUNOGLOBULIN E 5 IU/mL (0-100)
== END 2016-10-05 11:15 | disposition home or self-care (01) | DRG 199 ==
LOC: D.ER 17:50 → D.M2 22:09
PROVIDERS: Emergency Medicine; Internal Medicine Pulmonary Disease; ADMIT Family Medicine
DX: J93.9 Pneumothorax, unspecified (principal); J18.9 Pneumonia, unspecified organism; J96.21 Acute and chronic respiratory failure with hypoxia; J44.1 Chronic obstructive pulmonary disease with (acute) exacerbation; J90 Pleural effusion, not elsewhere classified; J44.0 Chronic obstructive pulmonary disease with (acute) lower respiratory infection; D80.3 Selective deficiency of immunoglobulin G [IgG] subclasses; D50.9 Iron deficiency anemia, unspecified; E78.5 Hyperlipidemia, unspecified; J84.10 Pulmonary fibrosis, unspecified; I48.0 Paroxysmal atrial fibrillation; B37.9 Candidiasis, unspecified